=== PATIENT | female | born 1960 | race Caucasian/White ===

== ENCOUNTER 2017-12-01 08:15 | Day surgery (SDC) | payer MEDICARE, MEDICAID ==
[2017-12-01] MEDS ORDERED: LIDOcaine 2% 5ml jelly ONE (09:35)
[2017-12-01] MEDS ORDERED: CYCL-394 (10:16)
[2017-12-01] MEDS ORDERED: ATOR80TA PO (10:16)
[2017-12-01] MEDS ORDERED: SYN0.088T PO (10:17)
[2017-12-01] MEDS ORDERED: METF500T PO (10:18)
[2017-12-01] MEDS ORDERED: GABA600T2 PO (10:19)
[2017-12-01] MEDS ORDERED: NAPR-56 PO (10:20)
[2017-12-01] MEDS ORDERED: PARO40TA4 PO (10:20)
[2017-12-01] MEDS ORDERED: OMEG1CAP PO (10:21)
[2017-12-01] MEDS ORDERED: MULT-38 PO (10:21)
[2017-12-01] MEDS ORDERED: ASCO500C15 PO (10:22)
[2017-12-01] MEDS ORDERED: CHOL10002 PO (10:22)
[2017-12-01] MEDS ORDERED: CYAN-19 PO (10:22)
== END 2017-12-01 11:15 | disposition home or self-care (01) ==
LOC: WOUND CARE 08:15
PROVIDERS: ATTEND Surgery
DX: L98.491 Non-pressure chronic ulcer of skin of other sites limited to breakdown of skin (principal)
CPT/HCPCS: 36416; 82948; 97597; A6021; A6206; A6212

== ENCOUNTER 2020-07-11 11:20 | Emergency (ER) | payer BC, MEDICAID ==
[~2020-07-11 11:20] MED LIST: ASCO500C15 PO; ATOR80TA PO; CHOL10002 PO; CYAN-51 PO; CYCL-394; GABA600T13 PO; METF500T PO; MULT-38 PO; NAPR-56 PO; OMEG1CAP PO; PARO40TA4 PO; SYN0.088T PO
[2020-07-11 11:37] VITALS: BP 102/66
[2020-07-11] MEDS ORDERED: LIDOcaine 5% patch TP ONE (12:05)
[2020-07-11] MEDS ORDERED: HYDR-4353 PO (12:34)
== END 2020-07-11 13:03 | disposition home or self-care (01) ==
LOC: ER 11:26
DX: M54.5 Low back pain (principal); Z88.0 Allergy status to penicillin; Z88.8 Allergy status to other drugs, medicaments and biological substances; Z79.899 Other long term (current) drug therapy
CPT/HCPCS: 99284

== ENCOUNTER 2022-02-19 12:29 | Emergency (ER) | payer BC, MEDICAID ==
[~2022-02-19] VITALS: Ht 162.6 cm; Wt 201.8 kg
[~2022-02-19 12:29] MED LIST changes: -ASCO500C15 PO; +ASCO500C18 PO; -OMEG1CAP PO; +OMEG1CAP61 PO
[2022-02-19] MEDS ORDERED: TETanus/Pertussis (Acell)/Diphther VAC/PF (Tdap-Adult) 0.5ml syringe IMVAC ONE (14:20)
[2022-02-19] MEDS ORDERED: HYDROcodone/acetaminophen 10/325mg tab PO ONE (14:20)
[2022-02-19] MEDS ORDERED: ketorolac trometh. 30mg/ml inj. IM ONE (14:20)
[2022-02-19] MEDS ORDERED: ketorolac tromethamine 15mg/ml inj. IM ONE (14:25)
[2022-02-19 16:57] VITALS: BP 137/70
== END 2022-02-19 17:00 | disposition home or self-care (01) ==
LOC: ER 12:30
DX: S80.01XA Contusion of right knee, initial encounter (principal); S50.311A Abrasion of right elbow, initial encounter; G47.30 Sleep apnea, unspecified; E11.9 Type 2 diabetes mellitus without complications; E03.9 Hypothyroidism, unspecified; Z88.0 Allergy status to penicillin; Z88.8 Allergy status to other drugs, medicaments and biological substances; Z79.899 Other long term (current) drug therapy; E66.01 Morbid (severe) obesity due to excess calories; Z68.45 Body mass index [BMI] 70 or greater, adult; W01.0XXA Fall on same level from slipping, tripping and stumbling without subsequent striking against object, initial encounter; Y93.89 Activity, other specified; Y92.89 Other specified places as the place of occurrence of the external cause; Y99.8 Other external cause status
CPT/HCPCS: 73080; 73560; 90471; 90715; 96372; 99284; J1885

== ENCOUNTER 2022-10-03 14:22 | Inpatient (IN) | payer BC, MEDICAID ==
[~2022-10-03] VITALS: Ht 162.6 cm; Wt 195.5 kg
[~2022-10-03 14:22] MED LIST changes: -CYCL-394; +CYCL-394 PO
[2022-10-03 15:46] LABS: BASOPHILS # (AUTO) 0.1 X10'3 (0-0.2); BASOPHILS % (AUTO) 0.5 % (0-1); EOSINOPHILS # (AUTO) 0.3 X10'3 (0-0.9); EOSINOPHILS % (AUTO) 2.5 % (0-6); HEMATOCRIT 37.8 % (35.0-45.0); HEMOGLOBIN 12.5 g/dl (12.0-16.0); LYMPHOCYTES # (AUTO) 1.9 X10'3 (1.1-4.8); LYMPHOCYTES % (AUTO) 14.6 % (21-51); MEAN CORPUSCULAR HEMOGLOBIN 29.8 PG (27.0-31.0); MEAN CORPUSCULAR VOLUME 90.2 FL (78-98); MEAN PLATELET VOLUME 7.6 FL (7.4-10.4); MONOCYTES # (AUTO) 0.9 X10'3 (0-0.9); MONOCYTES % (AUTO) 7.1 % (2-12); NEUTROPHILS # (AUTO) 9.8 X10'3 (1.8-7.7); NEUTROPHILS % (AUTO) 75.3 % (42-75); PLATELET COUNT 340 X10'3 (140-440); RED CELL DISTRIBUTION WIDTH 14.1 % (11.5-14.5); WHITE BLOOD COUNT 13.1 X10'3 (4.5-11.0)
[2022-10-03 15:54] LABS: ALANINE AMINOTRANSFERASE 24 U/L (12-78); ALBUMIN 2.8 G/DL (3.4-5.0); ALBUMIN/GLOBULIN RATIO 0.6 (1.1-1.5); ALKALINE PHOSPHATASE 101 IU/L (46-116); ANION GAP 7 (8-16); ASPARTATE AMINO TRANSFERASE 22 U/L (10-37); BILIRUBIN,TOTAL 0.4 MG/DL (0.1-1.0); BLOOD UREA NITROGEN 20 MG/DL (7-18); BUN/CREATININE RATIO 17.7 (6.6-38.0); CALCIUM 8.6 MG/DL (8.5-10.1); CHLORIDE 102 MMOL/L (99-107); CREATININE 1.13 MG/DL (0.40-0.90); GLUCOSE 171 MG/DL (70-104); MAGNESIUM 1.8 MG/DL (1.5-2.4); POTASSIUM 4.1 MMOL/L (3.5-5.1); SODIUM 135 MMOL/L (135-145); TOTAL CARBON DIOXIDE 25.6 MMOL/L (24-32); TOTAL PROTEIN 7.3 G/DL (6.4-8.2); eGFR 49 ML/MIN
[2022-10-03] MEDS ORDERED: acetaminophen 325mg tablet PO PRN ×2 (17:30)
[2022-10-03] MEDS ORDERED: magnesium 4gm in 100ml NS 100 ML IV PRN (17:30)
[2022-10-03] MEDS ORDERED: potassium Cl 40MEQ/1/2NS 520ml 520 ML IV PRN (17:30)
[2022-10-03] MEDS ORDERED: potassium Cl 20 mEq SR tablet PO PRN ×2 (17:30)
[2022-10-03] MEDS ORDERED: magnesium Cl slow-release 64mg tablet PO PRN (17:30)
[2022-10-03] MEDS: furosemide 20 MG/2 ML vial IV SCH ×2 (17:50→20:38)
[2022-10-03 18:06] LABS: ABG BASE EXCESS 2.5 mmol/L (-2.0-2.0); ABG HCO3 26.8 mmol/L (22.0-26.0); ABG PCO2 (T) 40.2 mmHg (32.0-45.0); ABG PO2 (T) 91.4 mmHg (75.0-100.0); ALLEN'S TEST POSITIVE; FCOHb 0.3 % (0.0-3.9); FMetHb 0.3 % (0.0-1.5); FO2Hb 96.4 % (94-97); TOTAL HEMOGLOBIN 13.9 G/dl (12.0-16.0)
[2022-10-03] MEDS: levoFLOXACIN-Levaquin 500mg/D5 100 ML IV SCH (18:21)
--- NOTE | 2022-10-03 19:09 | NUR ---
transfered pt to hospital bed for optimal positioning and comfort. fresh linens, pure wick placed on pt.
[2022-10-03] MEDS: heparin, porcine 5000 units/ml vial SQ SCH (20:38)
[2022-10-03] MEDS: ondansetron/PF 4mg/2ml inj IV PRN (22:22)
--- NOTE | 2022-10-04 07:10 | NUR ---
Report given for patient at this time, all questions and concerns addressed.
[2022-10-04 07:30] VITALS: BP 150/82
[2022-10-04 09:39] LABS: BASOPHILS # (AUTO) 0.1 X10'3 (0-0.2); BASOPHILS % (AUTO) 0.8 % (0-1); EOSINOPHILS # (AUTO) 0.1 X10'3 (0-0.9); EOSINOPHILS % (AUTO) 0.9 % (0-6); LYMPHOCYTES % (AUTO) 10.3 % (21-51); MEAN CORPUSCULAR HEMOGLOBIN 29.7 PG (27.0-31.0); MEAN CORPUSCULAR HGB CONC 33.3 g/dL (33.0-36.5); MEAN CORPUSCULAR VOLUME 89.4 FL (78-98); MEAN PLATELET VOLUME 7.9 FL (7.4-10.4); NEUTROPHILS # (AUTO) 7.4 X10'3 (1.8-7.7); PLATELET COUNT 326 X10'3 (140-440); RED BLOOD COUNT 4.37 X10'6 (4.20-5.60); RED CELL DISTRIBUTION WIDTH 14.6 % (11.5-14.5); WHITE BLOOD COUNT 9.6 X10'3 (4.5-11.0)
[2022-10-04] MEDS: heparin, porcine 5000 units/ml vial SQ SCH ×2 (09:56→20:11)
[2022-10-04] MEDS: furosemide 20 MG/2 ML vial IV SCH ×2 (09:56→20:10)
[2022-10-04] MEDS: levoFLOXACIN-Levaquin 500mg/D5 100 ML IV SCH (09:57)
[2022-10-04] MEDS ORDERED: LEVO75TA7 PO (10:18)
[2022-10-04] MEDS ORDERED: TRAM50TA2 PO (10:20)
[2022-10-04 10:26] LABS: ALANINE AMINOTRANSFERASE 28 U/L (12-78); ALBUMIN/GLOBULIN RATIO 0.6 (1.1-1.5); ALKALINE PHOSPHATASE 104 IU/L (46-116); ANION GAP 9 (8-16); ASPARTATE AMINO TRANSFERASE 31 U/L (10-37); BILIRUBIN,TOTAL 0.6 MG/DL (0.1-1.0); BLOOD UREA NITROGEN 18 MG/DL (7-18); BUN/CREATININE RATIO 16.7 (6.6-38.0); CHLORIDE 101 MMOL/L (99-107); CREATININE 1.08 MG/DL (0.40-0.90); GLUCOSE 125 MG/DL (70-104); POTASSIUM 3.8 MMOL/L (3.5-5.1); SODIUM 137 MMOL/L (135-145); TOTAL CARBON DIOXIDE 27.1 MMOL/L (24-32); TOTAL PROTEIN 7.8 G/DL (6.4-8.2); eGFR 51 ML/MIN
[2022-10-04] MEDS: ondansetron/PF 4mg/2ml inj IV PRN (10:33)
[2022-10-04] MEDS ORDERED: PIOG30TA71 PO (10:52)
[2022-10-04] MEDS ORDERED: HYDR50TA65 PO (10:52)
[2022-10-04] MEDS ORDERED: MELO-102 PO (10:52)
[2022-10-04] MEDS ORDERED: ALBU17AE26 PO (10:52)
[2022-10-04] MEDS ORDERED: BECL10.6 PO (10:52)
[2022-10-04] MEDS ORDERED: FURO20TA4 PO (10:52)
[2022-10-04] MEDS ORDERED: METF-900 PO (10:52)
[2022-10-04] MEDS ORDERED: SUMA100T16 PO (10:53)
[2022-10-04 11:52] LABS: HEMOGLOBIN A1C 6.3 % (4.5-6.2)
[2022-10-04] MEDS ORDERED: SUMAtriptan 25 MG tablet PO PRN (11:55)
[2022-10-04 12:03] VITALS: BP 126/62
--- NOTE | 2022-10-04 12:26 | NUR ---
Paged Dr thomas PAGER ID: [phone] MESSAGE: [phone]. Pili. Pt nauseous again, zofran given at 1003; A1C 6.3, ac/hs protocol? Javad, Dary [phone]
[2022-10-04] MEDS: albuterol 2.5 MG/3 ML nebule NEB PRN ×2 (12:33→17:03)
[2022-10-04] MEDS ORDERED: ondansetron/PF 4mg/2ml inj IV ONE (13:51)
--- NOTE | 2022-10-04 13:56 | NUR ---
Paged PAGER ID: [phone] MESSAGE: [phone]. Pili. Critical Trop 145. Dary [phone]
[2022-10-04] MEDS: nystatin 15 GM powder TP SCH ×2 (14:06→20:11)
[2022-10-04] MEDS ORDERED: regadenoson 0.4mg/5ml syringe IV PRN (15:00)
[2022-10-04] MEDS ORDERED: metoprolol tartrate 1mg/ml inj IV PRN (15:00)
[2022-10-04] MEDS ORDERED: aminophylline 250mg/10ml inj. IV PRN (15:00)
[2022-10-04] MEDS ORDERED: nitroGLYCERIN 0.4mg SUBLingual tab SL PRN (15:00)
[2022-10-04 16:00] VITALS: BP 129/79
--- NOTE | 2022-10-04 16:18 | NUR ---
Paged Dr José PAGER ID: [phone] MESSAGE: [id number]. Pili. Pt requesting paxil to be started today. She's already missed yesterdays dose too. Dary Farnsworth [phone]
[2022-10-04] MEDS: PARoxetine 20mg tablet PO SCH (16:57)
[2022-10-04 18:00] VITALS: BP 122/69
--- NOTE | 2022-10-04 18:30 | NUR ---
Patient in room U 3013. I have received report from Dary/ZARINA Medina and had the opportunity to ask questions and assume patient care. Patient sitting on side of bed in no distress, I will continue to monitor.
--- NOTE | 2022-10-04 18:54 | NUR ---
Orientee documentation: I have reviewed and agree with all interventions, assessments performed and documented by ZARINA Medina.
[2022-10-04] MEDS ORDERED: ondansetron/PF 4mg/2ml inj IV PRN (20:00)
[2022-10-04] MEDS: budesonide 0.5mg/2ml UD nebule IH SCH ×2 (20:09→21:00)
[2022-10-04] MEDS: gabapentin 300mg capsule PO SCH (20:10)
[2022-10-04] MEDS ORDERED: atorvastatin 20mg tablet PO SCH (21:00)
[2022-10-05 02:00] VITALS: BP 127/77
--- NOTE | 2022-10-05 03:02 | NUR ---
Patient reported to PCT that she has a sore throat, I went to assess her but she was sound asleep.
--- NOTE | 2022-10-05 06:03 | NUR ---
Problems reprioritized. Patient report given, questions answered & plan of care reviewed with ZARINA Foote.
[2022-10-05 06:30] VITALS: BP 118/69
[2022-10-05 07:18] LABS: BASOPHILS # (AUTO) 0.1 X10'3 (0-0.2); BASOPHILS % (AUTO) 0.7 % (0-1); EOSINOPHILS % (AUTO) 0.2 % (0-6); HEMATOCRIT 39.5 % (35.0-45.0); HEMOGLOBIN 12.7 g/dl (12.0-16.0); LYMPHOCYTES # (AUTO) 1.1 X10'3 (1.1-4.8); LYMPHOCYTES % (AUTO) 14.8 % (21-51); MEAN CORPUSCULAR HEMOGLOBIN 29.4 PG (27.0-31.0); MEAN CORPUSCULAR HGB CONC 32.1 g/dL (33.0-36.5); MEAN CORPUSCULAR VOLUME 91.5 FL (78-98); MEAN PLATELET VOLUME 7.6 FL (7.4-10.4); MONOCYTES # (AUTO) 1.5 X10'3 (0-0.9); MONOCYTES % (AUTO) 19.2 % (2-12); NEUTROPHILS % (AUTO) 65.1 % (42-75); PLATELET COUNT 299 X10'3 (140-440); RED BLOOD COUNT 4.31 X10'6 (4.20-5.60); RED CELL DISTRIBUTION WIDTH 14.4 % (11.5-14.5); WHITE BLOOD COUNT 7.6 X10'3 (4.5-11.0)
[2022-10-05] MEDS ORDERED: PARoxetine 20mg tablet PO SCH (08:00)
[2022-10-05] MEDS ORDERED: levoTHYROXINE 75mcg tablet PO SCH (08:00)
[2022-10-05 08:34] LABS: ALANINE AMINOTRANSFERASE 27 U/L (12-78); ALBUMIN 2.9 G/DL (3.4-5.0); ALBUMIN/GLOBULIN RATIO 0.6 (1.1-1.5); ALKALINE PHOSPHATASE 97 IU/L (46-116); ANION GAP 6 (8-16); ASPARTATE AMINO TRANSFERASE 52 U/L (10-37); BILIRUBIN,TOTAL 0.4 MG/DL (0.1-1.0); BLOOD UREA NITROGEN 18 MG/DL (7-18); BUN/CREATININE RATIO 16.2 (6.6-38.0); CALCIUM 8.4 MG/DL (8.5-10.1); CHLORIDE 100 MMOL/L (99-107); CREATININE 1.11 MG/DL (0.40-0.90); GLUCOSE 125 MG/DL (70-104); POTASSIUM 3.9 MMOL/L (3.5-5.1); SODIUM 138 MMOL/L (135-145); TOTAL CARBON DIOXIDE 31.7 MMOL/L (24-32); TOTAL PROTEIN 7.7 G/DL (6.4-8.2); eGFR 50 ML/MIN
--- NOTE | 2022-10-05 08:59 | NUR ---
Paged Dr José PAGER ID: [phone] MESSAGE: [phone]. Pili. Critical trop 111. Nuc med is going to take her soon for charly. Dary Farnsworth [phone]
[2022-10-05] MEDS: heparin, porcine 5000 units/ml vial SQ SCH (09:05)
[2022-10-05] MEDS: nystatin 15 GM powder TP SCH ×2 (09:05→13:54)
[2022-10-05] MEDS: PARoxetine 20mg tablet PO SCH (09:06)
[2022-10-05] MEDS: gabapentin 300mg capsule PO SCH (09:06)
[2022-10-05] MEDS: furosemide 20 MG/2 ML vial IV SCH (09:37)
[2022-10-05] MEDS ORDERED: BENZ-38 PO (09:47)
[2022-10-05] MEDS ORDERED: LEVO-65 PO (09:47)
[2022-10-05] MEDS ORDERED: ALBU2.5V7 NEB (09:47)
[2022-10-05] MEDS ORDERED: [UNRECOGNIZED DRUG - CODE] PO (09:47)
[2022-10-05] MEDS ORDERED: NYSPWD TP (09:51)
--- NOTE | 2022-10-05 10:09 | NUR ---
O2 Sat at rest on room air:_88__% If below 89%: Recovery O2 Sat at rest on _2LPM:___%:___% via___NC (mask/nasal cannula, etc..) No further documentation is necessary. Addendum: 10/05/22 at 1056 by Dary Langford RN Recovery O2 Sat at rest on _LPM:_93__%:___% via___NC (mask/nasal cannula, etc..) No further documentation is necessary.
[2022-10-05] MEDS: budesonide 0.5mg/2ml UD nebule IH SCH (10:17)
[2022-10-05 11:00] VITALS: BP 123/68
[2022-10-05] MEDS ORDERED: levoFLOXACIN 250mg tablet PO SCH (11:00)
[2022-10-05 15:00] VITALS: BP 120/69
--- NOTE | 2022-10-05 17:04 | NUR ---
PT stable for d/c per MD orders, delayed d/t o2 delivery and ride. All d/c ppwk was rev;d with patient. Friend, Maikel, in room as well. All questions, comments, and concerns answered at this time. PIV was removed and coban applied. Pt tolerated well. All personal belongings were sent with patient as well as delivered O2. All personal belongings were sent with patient. Pt got herself into her electric w/c and with her friend, was able to leave the building as they needed to catch the bus. Gave her blanket and gown to cover herself as she only had a nightgown to go home in. Addendum: 10/05/22 at 1718 by Dary Langford RN new rx were electronically sent to [facility] on [address]. 3 meds were not electronically sent so I called those in for her. Spoke with pharmacist Claudio.
== END 2022-10-05 17:00 | disposition home or self-care (01) | DRG 189 ==
LOC: ER 14:23 → ED HOLD 17:33 → EDBEDREQ 10-04 05:29 → PCU 3S 10-04 07:33
PROVIDERS: ADMIT Internal Medicine; ATTEND Internal Medicine
PROC: 5A09357 Assistance with Respiratory Ventilation, Less than 24 Consecutive Hours, Continuous Positive Airway Pressure (ICD-10-PCS; principal; 2022-10-04)
PROC: 5A09357 Assistance with Respiratory Ventilation, Less than 24 Consecutive Hours, Continuous Positive Airway Pressure (ICD-10-PCS; 2022-10-05)
DX: J96.20 Acute and chronic respiratory failure, unspecified whether with hypoxia or hypercapnia (principal); I21.A1 Myocardial infarction type 2; J45.901 Unspecified asthma with (acute) exacerbation; I50.32 Chronic diastolic (congestive) heart failure; Z68.45 Body mass index [BMI] 70 or greater, adult; Z20.822 Contact with and (suspected) exposure to COVID-19; F32.A Depression, unspecified; D72.829 Elevated white blood cell count, unspecified; I35.1 Nonrheumatic aortic (valve) insufficiency; B36.9 Superficial mycosis, unspecified; E03.9 Hypothyroidism, unspecified; E11.9 Type 2 diabetes mellitus without complications; E66.01 Morbid (severe) obesity due to excess calories; G47.33 Obstructive sleep apnea (adult) (pediatric); R79.89 Other specified abnormal findings of blood chemistry; Z88.0 Allergy status to penicillin; Z88.8 Allergy status to other drugs, medicaments and biological substances
CPT/HCPCS: 36415; 36600; 71045; 80053; 82803; 82948; 83036; 83605; 83735; 83880; 84145; 84443; 84484; 85018; 85025; 87502; 87503; 87635; 93005; 93308; 94640; 94660; 94760; 97110; 97161; 97530; 99285; A6223; A6449; C9803; G0378; J1644; J1940; J1956; J2405

== ENCOUNTER 2022-12-15 05:05 | Emergency (ER) | payer BC, MEDICAID ==
[~2022-12-15] VITALS: Ht 162.6 cm; Wt 200.0 kg
[~2022-12-15 05:05] MED LIST changes: +ALBU17AE26 PO; +ALBU2.5V7 NEB; -ASCO500C18 PO; +BECL10.6 PO; -CHOL10002 PO; -CYAN-51 PO; +FURO20TA4 PO; +HYDR50TA65 PO; +LEVO75TA7 PO; +METF-900 PO; -METF500T PO; -MULT-38 PO; -NAPR-56 PO; +NYSPWD TP; -OMEG1CAP61 PO; +PIOG30TA71 PO; +SUMA100T16 PO; -SYN0.088T PO; +TRAM50TA2 PO; +[UNRECOGNIZED DRUG - CODE] PO
[2022-12-15] MEDS ORDERED: methylPREDNISolone sod succ 125mg/2ml vial IV ONE (05:10)
[2022-12-15] MEDS ORDERED: albuterol 2.5 MG/3 ML nebule CONTNEB PRN ×2 (05:10→06:45)
[2022-12-15] MEDS ORDERED: CefTRIAXone/D5W-Rocephin 1gm 50 ML IV ONE (05:15)
[2022-12-15 05:34] LABS: BASOPHILS # (AUTO) 0.1 X10'3 (0-0.2); BASOPHILS % (AUTO) 0.8 % (0-1); EOSINOPHILS # (AUTO) 0.4 X10'3 (0-0.9); EOSINOPHILS % (AUTO) 4.1 % (0-6); HEMATOCRIT 36.1 % (35.0-45.0); HEMOGLOBIN 11.5 g/dl (12.0-16.0); LYMPHOCYTES % (AUTO) 30.5 % (21-51); MEAN CORPUSCULAR HEMOGLOBIN 28.9 PG (27.0-31.0); MEAN CORPUSCULAR HGB CONC 31.9 g/dL (33.0-36.5); MEAN CORPUSCULAR VOLUME 90.6 FL (78-98); MEAN PLATELET VOLUME 7.2 FL (7.4-10.4); MONOCYTES # (AUTO) 1.1 X10'3 (0-0.9); MONOCYTES % (AUTO) 11.4 % (2-12); NEUTROPHILS # (AUTO) 5.2 X10'3 (1.8-7.7); NEUTROPHILS % (AUTO) 53.2 % (42-75); PLATELET COUNT 411 X10'3 (140-440); RED BLOOD COUNT 3.99 X10'6 (4.20-5.60); RED CELL DISTRIBUTION WIDTH 15.3 % (11.5-14.5); WHITE BLOOD COUNT 9.8 X10'3 (4.5-11.0)
[2022-12-15] MEDS ORDERED: AZIT-83 PO (05:44)
[2022-12-15] MEDS ORDERED: PRED20TA PO (05:44)
[2022-12-15 06:07] LABS: ALBUMIN 2.8 G/DL (3.4-5.0); ALBUMIN/GLOBULIN RATIO 0.6 (1.1-1.5); ANION GAP 8 (8-16); ASPARTATE AMINO TRANSFERASE 36 U/L (10-37); BILIRUBIN,TOTAL 0.3 MG/DL (0.1-1.0); BLOOD UREA NITROGEN 13 MG/DL (7-18); BUN/CREATININE RATIO 12.6 (6.6-38.0); CALCIUM 8.3 MG/DL (8.5-10.1); CHLORIDE 102 MMOL/L (99-107); CREATININE 1.03 MG/DL (0.40-0.90); GLUCOSE 172 MG/DL (70-104); POTASSIUM 4.1 MMOL/L (3.5-5.1); SODIUM 139 MMOL/L (135-145); TOTAL CARBON DIOXIDE 28.8 MMOL/L (24-32); TOTAL PROTEIN 7.4 G/DL (6.4-8.2); eGFR 54 ML/MIN
[2022-12-15 06:08] LABS: ALANINE AMINOTRANSFERASE 23 U/L (12-78); ALKALINE PHOSPHATASE 143 IU/L (46-116)
[2022-12-15 09:46] VITALS: BP 124/66
== END 2022-12-15 10:12 | disposition home or self-care (01) ==
LOC: ER 05:06
DX: J45.901 Unspecified asthma with (acute) exacerbation (principal); E11.9 Type 2 diabetes mellitus without complications; I10 Essential (primary) hypertension; Z88.0 Allergy status to penicillin; Z88.1 Allergy status to other antibiotic agents
CPT/HCPCS: 36415; 71045; 80053; 83605; 83880; 84145; 84484; 85025; 87040; 87077; 93005; 94640; 94644; 94645; 96365; 96375; 99285; J0696; J2930; 94760; A4615; A7015

== ENCOUNTER 2023-03-01 18:16 | Emergency (ER) | payer BC, MEDICAID ==
[~2023-03-01] VITALS: Ht 162.6 cm; Wt 154.6 kg
[2023-03-01 18:27] VITALS: BP 109/59
[2023-03-01] MEDS ORDERED: CYCL-1 PO (20:28)
[2023-03-01] MEDS ORDERED: cyclobenzaprine 10mg tablet PO ONE (20:30)
== END 2023-03-01 20:46 | disposition home or self-care (01) ==
LOC: ER 18:17
DX: M54.41 Lumbago with sciatica, right side (principal); E11.9 Type 2 diabetes mellitus without complications; J45.909 Unspecified asthma, uncomplicated; E03.9 Hypothyroidism, unspecified; Z88.0 Allergy status to penicillin; Z88.8 Allergy status to other drugs, medicaments and biological substances
CPT/HCPCS: 99283

== ENCOUNTER 2023-04-25 09:42 | Emergency (ER) | payer BC, MEDICAID ==
[~2023-04-25] VITALS: Ht 162.6 cm; Wt 181.0 kg
[~2023-04-25 09:42] MED LIST changes: +CYCL-1 PO
[2023-04-25 11:28] LABS: BASOPHILS % (AUTO) 0.3 % (0-1); EOSINOPHILS # (AUTO) 0.5 X10'3 (0-0.9); EOSINOPHILS % (AUTO) 4.7 % (0-6); HEMOGLOBIN 12.7 g/dl (12.0-16.0); MEAN CORPUSCULAR HEMOGLOBIN 27.6 PG (27.0-31.0); MEAN CORPUSCULAR HGB CONC 32.1 g/dL (33.0-36.5); RED BLOOD COUNT 4.59 X10'6 (4.20-5.60)
[2023-04-25 11:30] LABS: HEMATOCRIT 39.4 % (35.0-45.0); LYMPHOCYTES # (AUTO) 4.2 X10'3 (1.1-4.8); LYMPHOCYTES % (AUTO) 36.7 % (21-51); MEAN CORPUSCULAR VOLUME 85.8 FL (78-98); MEAN PLATELET VOLUME 7.7 FL (7.4-10.4); MONOCYTES # (AUTO) 0.9 X10'3 (0-0.9); MONOCYTES % (AUTO) 7.6 % (2-12); NEUTROPHILS # (AUTO) 5.8 X10'3 (1.8-7.7); NEUTROPHILS % (AUTO) 50.7 % (42-75); PLATELET COUNT 504 X10'3 (140-440); RED CELL DISTRIBUTION WIDTH 16.7 % (11.5-14.5); WHITE BLOOD COUNT 11.4 X10'3 (4.5-11.0)
[2023-04-25 11:36] LABS: ALANINE AMINOTRANSFERASE 29 U/L (12-78); ALBUMIN 2.9 G/DL (3.4-5.0); ALBUMIN/GLOBULIN RATIO 0.6 (1.1-1.5); ALKALINE PHOSPHATASE 167 IU/L (46-116); ANION GAP 11 (8-16); ASPARTATE AMINO TRANSFERASE 27 U/L (10-37); BILIRUBIN,TOTAL 0.4 MG/DL (0.1-1.0); BLOOD UREA NITROGEN 16 MG/DL (7-18); BUN/CREATININE RATIO 13.8 (10.0-20.0); CALCIUM 9.3 MG/DL (8.5-10.1); CHLORIDE 102 MMOL/L (99-107); CREATININE 1.16 MG/DL (0.40-0.90); GLUCOSE 151 MG/DL (70-104); POTASSIUM 3.9 MMOL/L (3.5-5.1); SODIUM 139 MMOL/L (135-145); TOTAL CARBON DIOXIDE 26.2 MMOL/L (24-32); TOTAL PROTEIN 7.6 G/DL (6.4-8.2); eGFR 47 ML/MIN
[2023-04-25 14:05] LABS: ANISOCYTOSIS 1+; PLATELET ESTIMATE INCREASED; TOTAL CELLS COUNTED 100
[2023-04-25 15:29] LABS: CLARITY,URINE CLOUDY (Clear); COLOR,URINE YELLOW (Yellow); GLUCOSE, URINE NEGATIVE (Neg); KETONES,URINE NEGATIVE (Neg); LEUKOCYTE ESTERASE ,URINE SMALL (Neg); NITRITES, URINE POSITIVE (Neg); OCCULT BLOOD,URINE SMALL (Neg); PH,URINE 5.5 (4.8-8.0); PROTEIN,URINE NEGATIVE (Neg); UROBILINOGEN,URINE 0.2 E.U/dL (0.2-1.0)
[2023-04-25 15:40] VITALS: BP 173/106
[2023-04-25 15:43] LABS: UA COLLECTION TYPE CLN CATCH MIDSTREAM
[2023-04-25 15:45] LABS: BACTERIA,URINE 3+ /HPF (Neg); MUCUS STRANDS FEW /LPF (Neg); SQUAMOUS EPITHELIAL CELL,UR MODERATE /LPF (FEW); WBC CLUMPS,URINE FEW /HPF (NEGATIVE); WBC,URINE TNTC /HPF (0-4)
[2023-04-25] MEDS ORDERED: traMADol 50MG tablet PO ONE (16:00)
--- NOTE | 2023-04-25 16:43 | NUR ---
Spoke to [facility], they are not able to transport Pt at this time. Also called [employer], also not able to transport.
--- NOTE | 2023-04-25 17:00 | NUR ---
Break RN: patient sitting at the edge of the bed,no needs at this time.
--- NOTE | 2023-04-25 17:26 | NUR ---
Pt will be transfered via [facility] [employer].
== END 2023-04-25 17:51 | disposition home or self-care (01) ==
LOC: ER 09:42
DX: S30.92XD Unspecified superficial injury of abdominal wall, subsequent encounter (principal); E11.9 Type 2 diabetes mellitus without complications; J45.909 Unspecified asthma, uncomplicated; E03.9 Hypothyroidism, unspecified; Z88.0 Allergy status to penicillin; Z88.8 Allergy status to other drugs, medicaments and biological substances; Z79.899 Other long term (current) drug therapy; X58.XXXD Exposure to other specified factors, subsequent encounter
CPT/HCPCS: 36415; 80053; 81001; 84145; 85007; 85025; 87088; 99284

== ENCOUNTER 2023-08-24 10:50 | Emergency (ER) | payer BC, MEDICAID ==
[~2023-08-24] VITALS: Ht 162.6 cm; Wt 184.0 kg
[2023-08-24 12:09] LABS: BASOPHILS # (AUTO) 0.1 X10'3 (0-0.2); BASOPHILS % (AUTO) 1.1 % (0-1); EOSINOPHILS # (AUTO) 0.3 X10'3 (0-0.9); EOSINOPHILS % (AUTO) 2.9 % (0-6); HEMATOCRIT 38.5 % (35.0-45.0); HEMOGLOBIN 12.5 g/dl (12.0-16.0); LYMPHOCYTES # (AUTO) 2.7 X10'3 (1.1-4.8); LYMPHOCYTES % (AUTO) 26.7 % (21-51); MEAN CORPUSCULAR HEMOGLOBIN 28.7 PG (27.0-31.0); MEAN CORPUSCULAR HGB CONC 32.5 g/dL (33.0-36.5); MEAN CORPUSCULAR VOLUME 88.3 FL (78-98); MEAN PLATELET VOLUME 7.4 FL (7.4-10.4); MONOCYTES # (AUTO) 0.9 X10'3 (0-0.9); MONOCYTES % (AUTO) 9.4 % (2-12); NEUTROPHILS % (AUTO) 59.9 % (42-75); PLATELET COUNT 478 X10'3 (140-440); RED BLOOD COUNT 4.36 X10'6 (4.20-5.60); RED CELL DISTRIBUTION WIDTH 15.2 % (11.5-14.5)
[2023-08-24 12:30] LABS: ALANINE AMINOTRANSFERASE 35 U/L (12-78); ALBUMIN 2.6 G/DL (3.4-5.0); ALBUMIN/GLOBULIN RATIO 0.6 (1.1-1.5); ALKALINE PHOSPHATASE 163 IU/L (46-116); ANION GAP 11 (8-16); ASPARTATE AMINO TRANSFERASE 49 U/L (10-37); BILIRUBIN,TOTAL 0.4 MG/DL (0.1-1.0); BLOOD UREA NITROGEN 14 MG/DL (7-18); BUN/CREATININE RATIO 11.9 (10.0-20.0); CALCIUM 8.5 MG/DL (8.5-10.1); CHLORIDE 101 MMOL/L (99-107); CREATININE 1.18 MG/DL (0.40-0.90); GLUCOSE 142 MG/DL (70-104); POTASSIUM 3.9 MMOL/L (3.5-5.1); SODIUM 137 MMOL/L (135-145); TOTAL CARBON DIOXIDE 24.9 MMOL/L (24-32); TOTAL PROTEIN 7.1 G/DL (6.4-8.2); eCRCL 42 ML/MIN; eGFR 46 ML/MIN
[2023-08-24 12:31] LABS: ANISOCYTOSIS 1+; PLATELET ESTIMATE INCREASED; TOTAL CELLS COUNTED 100
[2023-08-24 12:38] LABS: PRO BRAIN NATRIURETIC PEPTIDE 568 PG/ML (0-125)
--- NOTE | 2023-08-24 12:52 | NUR ---
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
--- NOTE | 2023-08-24 13:34 | NUR ---
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
--- NOTE | 2023-08-24 15:30 | NUR ---
DISCUSSED PT'S SITUATION WITH WOC NURSE. WOC NURSE STATING THAT IF SHE IS ADMITTED, PLACE CONSULT AND THEY WILL COME SEE HER TOMORROW. IF SHE IS DISCHARGED, THEY WILL RESUME DRESSING CHANGES TO HER PANUS AREA AT SCHEDULED APPOINTMENT ON TUESDAY.
[2023-08-24 16:11] VITALS: TEMP 98
[2023-08-24] MEDS ORDERED: magnesium 4gm in 100ml NS 100 ML IV ONE (16:15)
[2023-08-24 16:44] LABS: BILIRUBIN,URINE NEGATIVE (Neg); CLARITY,URINE TURBID (Clear); COLOR,URINE YELLOW (Yellow); GLUCOSE, URINE NEGATIVE (Neg); KETONES,URINE NEGATIVE (Neg); LEUKOCYTE ESTERASE ,URINE SMALL (Neg); NITRITES, URINE POSITIVE (Neg); OCCULT BLOOD,URINE TRACE-INTACT (Neg); PH,URINE 5.5 (4.8-8.0); PROTEIN,URINE NEGATIVE (Neg); UROBILINOGEN,URINE 0.2 E.U/dL (0.2-1.0)
[2023-08-24 16:57] LABS: UA COLLECTION TYPE CLN CATCH MIDSTREAM
[2023-08-24 16:58] LABS: BACTERIA,URINE 4+ /HPF (Neg); HYALINE CASTS 0-3 /LPF (NEGATIVE); RBC,URINE 0-2 /HPF (0-2); SQUAMOUS EPITHELIAL CELL,UR MODERATE /LPF (FEW)
--- NOTE | 2023-08-24 16:58 | NUR ---
SPOKE WITH MD RANGEL WHO STATED OKAY TO RUN MAGNESIUM OVER 60 MINUTES TIMESPAN.
[2023-08-24 16:59] LABS: WBC CLUMPS,URINE FEW /HPF (NEGATIVE); WBC,URINE 50-100 /HPF (0-4)
[2023-08-24] MEDS ORDERED: CefTRIAXone 2gm/D5W 50ml BAG 50 ML IV ONE (17:10)
[2023-08-24] MEDS ORDERED: ALBU8HFA INH (18:12)
[2023-08-24] MEDS ORDERED: LEVO-65 PO (18:12)
[2023-08-24] MEDS ORDERED: PRED20TA PO (18:12)
[2023-08-24] MEDS ORDERED: methylPREDNISolone sod succ 125mg/2ml vial IV ONE (18:20)
[2023-08-24 19:32] VITALS: BP 111/58; PULSE 96; RESP 18; O2SAT 93
== END 2023-08-24 19:35 | disposition home or self-care (01) ==
LOC: ER 10:51
DX: N39.0 Urinary tract infection, site not specified (principal); Z20.822 Contact with and (suspected) exposure to COVID-19; E83.42 Hypomagnesemia; R05.9 Cough, unspecified; J45.909 Unspecified asthma, uncomplicated; E03.9 Hypothyroidism, unspecified; Z88.0 Allergy status to penicillin; Z88.8 Allergy status to other drugs, medicaments and biological substances; Z79.899 Other long term (current) drug therapy; Z79.1 Long term (current) use of non-steroidal anti-inflammatories (NSAID); Z79.2 Long term (current) use of antibiotics
CPT/HCPCS: 36415; 70450; 71045; 80053; 81001; 83605; 83735; 83880; 84484; 85007; 85025; 87040; 87077; 87088; 87186; 87502; 87503; 87811; 93005; 96365; 96366; 96368; 96375; 99285; J0696; J2930; J3475

== ENCOUNTER 2023-10-31 16:02 | Emergency (ER) | payer BC, MEDICAID ==
[~2023-10-31] VITALS: Ht 167.6 cm; Wt 169.1 kg
[2023-10-31 18:01] LABS: BASOPHILS # (AUTO) 0.1 X10'3 (0-0.2); BASOPHILS % (AUTO) 1.3 % (0-1); EOSINOPHILS # (AUTO) 0.3 X10'3 (0-0.9); EOSINOPHILS % (AUTO) 2.6 % (0-6); HEMATOCRIT 39.7 % (35.0-45.0); HEMOGLOBIN 12.7 g/dl (12.0-16.0); LYMPHOCYTES # (AUTO) 3.2 X10'3 (1.1-4.8); LYMPHOCYTES % (AUTO) 27.6 % (21-51); MEAN CORPUSCULAR HEMOGLOBIN 28.8 PG (27.0-31.0); MEAN CORPUSCULAR VOLUME 89.8 FL (78-98); MEAN PLATELET VOLUME 7.6 FL (7.4-10.4); MONOCYTES # (AUTO) 0.9 X10'3 (0-0.9); MONOCYTES % (AUTO) 7.8 % (2-12); NEUTROPHILS # (AUTO) 6.9 X10'3 (1.8-7.7); NEUTROPHILS % (AUTO) 60.7 % (42-75); PLATELET COUNT 485 X10'3 (140-440); RED BLOOD COUNT 4.42 X10'6 (4.20-5.60); RED CELL DISTRIBUTION WIDTH 14.7 % (11.5-14.5); WHITE BLOOD COUNT 11.4 X10'3 (4.5-11.0)
[2023-10-31 18:08] LABS: ALANINE AMINOTRANSFERASE 26 U/L (12-78); ALBUMIN 2.5 G/DL (3.4-5.0); ALBUMIN/GLOBULIN RATIO 0.5 (1.1-1.5); ALKALINE PHOSPHATASE 145 IU/L (46-116); ANION GAP 11 (8-16); ASPARTATE AMINO TRANSFERASE 28 U/L (10-37); BILIRUBIN,TOTAL 0.3 MG/DL (0.1-1.0); BLOOD UREA NITROGEN 12 MG/DL (7-18); BUN/CREATININE RATIO 11.7 (10.0-20.0); C-REACTIVE PROTEIN 2.55 MG/DL (0.0-0.5); CALCIUM 7.6 MG/DL (8.5-10.1); CHLORIDE 100 MMOL/L (99-107); CREATININE 1.03 MG/DL (0.40-0.90); GLUCOSE 126 MG/DL (70-104); POTASSIUM 4.3 MMOL/L (3.5-5.1); SODIUM 136 MMOL/L (135-145); TOTAL CARBON DIOXIDE 24.6 MMOL/L (24-32); TOTAL PROTEIN 7.5 G/DL (6.4-8.2); eCRCL 48 ML/MIN; eGFR 54 ML/MIN
[2023-10-31] MEDS ORDERED: Dakins solution (1/4 strength) 473ml solution TP SCH (21:40)
[2023-10-31] MEDS ORDERED: DOXY-356 PO (21:58)
[2023-10-31 22:33] VITALS: BP 110/47; PULSE 89; RESP 16; TEMP 98.2; O2SAT 99
[2023-11-03] MEDS ORDERED: SULF1TAB48 PO (18:25)
== END 2023-10-31 22:36 | disposition home or self-care (01) ==
LOC: ER 16:03
DX: T14.8XXA Other injury of unspecified body region, initial encounter (principal); E66.9 Obesity, unspecified; I10 Essential (primary) hypertension; J45.909 Unspecified asthma, uncomplicated; E11.9 Type 2 diabetes mellitus without complications; E03.9 Hypothyroidism, unspecified; Z88.0 Allergy status to penicillin; Z88.8 Allergy status to other drugs, medicaments and biological substances; Z79.899 Other long term (current) drug therapy; Z79.2 Long term (current) use of antibiotics; Z79.1 Long term (current) use of non-steroidal anti-inflammatories (NSAID)
CPT/HCPCS: 36415; 80053; 85025; 85651; 86140; 87070; 87077; 87186; 99283

== ENCOUNTER 2024-05-22 11:02 | Day surgery (SDC) | payer BC, MEDICAID ==
[2024-05-18 11:11] LABS: BASOPHILS # (AUTO) 0.1 X10'3 (0-0.2); EOSINOPHILS # (AUTO) 0.4 X10'3 (0-0.9); EOSINOPHILS % (AUTO) 3.2 % (0-6); HEMATOCRIT 40.5 % (35.0-45.0); HEMOGLOBIN 13.3 g/dl (12.0-16.0); LYMPHOCYTES # (AUTO) 3.6 X10'3 (1.1-4.8); MEAN CORPUSCULAR HEMOGLOBIN 29.2 PG (27.0-31.0); MEAN CORPUSCULAR HGB CONC 32.7 g/dL (33.0-36.5); MEAN CORPUSCULAR VOLUME 89.1 FL (78-98); MEAN PLATELET VOLUME 7.8 FL (7.4-10.4); MONOCYTES # (AUTO) 0.7 X10'3 (0-0.9); MONOCYTES % (AUTO) 5.9 % (2-12); NEUTROPHILS # (AUTO) 7.6 X10'3 (1.8-7.7); NEUTROPHILS % (AUTO) 60.9 % (42-75); PLATELET COUNT 427 X10'3 (140-440); RED BLOOD COUNT 4.55 X10'6 (4.20-5.60); RED CELL DISTRIBUTION WIDTH 14.3 % (11.5-14.5); WHITE BLOOD COUNT 12.5 X10'3 (4.5-11.0)
[2024-05-18 11:27] LABS: APTT 30 SECONDS (22-32); PROTHROMBIN TIME 10.9 SECONDS (9.0-12.0)
[2024-05-18 11:30] LABS: ALBUMIN 2.9 G/DL (3.4-5.0); ANION GAP 7 (8-16); BLOOD UREA NITROGEN 13 MG/DL (7-18); BUN/CREATININE RATIO 12.3 (10.0-20.0); CALCIUM 9.1 MG/DL (8.5-10.1); CHLORIDE 103 MMOL/L (99-107); CHOL/HDL RATIO 3.9 (0.00-4.99); CHOLESTEROL 184 MG/DL (0-200); CREATININE 1.06 MG/DL (0.40-0.90); GLUCOSE 180 MG/DL (70-104); HDL CHOLESTEROL 47 MG/DL (35-60); LDL CHOLESTEROL 101 MG/DL (50-100); POTASSIUM 4.3 MMOL/L (3.5-5.1); SODIUM 139 MMOL/L (135-145); TOTAL CARBON DIOXIDE 29.2 MMOL/L (24-32); TRIGLYCERIDES 211 MG/DL (20-135); eGFR 52 ML/MIN
[2024-05-22] VITALS (8 sets, daily range): BP systolic 89–114; BP diastolic 37–58; PULSE 76–88; RESP 16; TEMP 98.5; O2SAT 93–94
[~2024-05-22] VITALS: Ht 162.6 cm; Wt 167.6 kg
[2024-05-22] MEDS: LORazepam 0.5 MG tablet PO PRN (11:58)
[2024-05-22] MEDS: diphenhydrAMINE 25mg capsule PO PRN (11:58)
[2024-05-22] MEDS ORDERED: LIDOcaine 1% (10mg/ml) 2ml vial ONE (11:59)
[2024-05-22] MEDS ORDERED: verapamil 2.5 mg/ml inj IV ONE (11:59)
[2024-05-22] MEDS: normal saline 1,000 ML IV SCH (11:59)
[2024-05-22] MEDS ORDERED: fentaNYL/PF 50MCG/1 ML 2ML syringe ONE (12:00)
[2024-05-22] MEDS ORDERED: iohexol 350MG/ML 100ml bottle IV ONE (12:00)
[2024-05-22] MEDS ORDERED: heparin 1,000unit/ml 10ml vial 10 ML ONE (12:00)
[2024-05-22] MEDS ORDERED: midazolam 1 mg/ML 2ml injection ONE (12:00)
[2024-05-22] MEDS ORDERED: nitroGLYCERIN 500mcg/5mL D5W 5 ML IV ONE (12:01)
[2024-05-22] MEDS ORDERED: iohexol 350 MG/ML 50ML vial IV ONE (13:18)
[2024-05-22 13:19] LABS: ISTAT HGB ART 13.3 g/dl (12.0-16.0); ISTAT Hct ART 39 %PCV (35-45); ISTAT O2 SATURATION ARTERIAL 96 % (95-98); ISTAT SOURCE ART
[2024-05-22] MEDS: HYDROcodone/acetaminophen 10/325mg tab PO ONE (14:17)
[2024-05-22] MEDS ORDERED: HYDROcodone/acetaminophen 10/325mg tab PO PRN (14:35)
[2024-05-22] MEDS ORDERED: HYDROcodone/acetaminophen 5mg/325mg tablet PO PRN (14:35)
[2024-05-23 06:31] LABS: ISTAT HGB MIX 13.6 g/dl (12.0-16.0); ISTAT Hct MIX 40 %PCV (35-45); ISTAT O2 SATURATION MIX VENOUS 57 % (60-80); ISTAT SOURCE VEN
== END 2024-05-22 15:45 | disposition home or self-care (01) ==
LOC: SSTAY O 11:02
PROVIDERS: ATTEND Student in an Organized Health Care Education/Training Program
DX: I35.0 Nonrheumatic aortic (valve) stenosis (principal); I25.10 Atherosclerotic heart disease of native coronary artery without angina pectoris; I44.7 Left bundle-branch block, unspecified; I11.0 Hypertensive heart disease with heart failure; I50.9 Heart failure, unspecified; E78.00 Pure hypercholesterolemia, unspecified; E11.9 Type 2 diabetes mellitus without complications; E03.9 Hypothyroidism, unspecified; E66.01 Morbid (severe) obesity due to excess calories; G47.33 Obstructive sleep apnea (adult) (pediatric); Z79.891 Long term (current) use of opiate analgesic; Z79.84 Long term (current) use of oral hypoglycemic drugs; Z79.890 Hormone replacement therapy; Z79.899 Other long term (current) drug therapy; Z68.44 Body mass index [BMI] 60.0-69.9, adult; Z88.0 Allergy status to penicillin; Z88.8 Allergy status to other drugs, medicaments and biological substances
CPT/HCPCS: 36415; 80048; 80061; 82803; 85014; 85025; 85610; 85730; 93005; 93456; 99152; A6258; J1644; J2250; J3010; J3490; J7030; Q0163; Q9967; 99153; A6402; C1751; C1894

== ENCOUNTER 2024-07-17 07:58 | Outpatient (CLI) | payer BC, MEDICAID ==
[~2024-07-17 07:58] MED LIST changes: -ALBU2.5V7 NEB; -BECL10.6 PO; -CYCL-1 PO; +IODIXANOL 320 MG/ML INFUS..BTL 100ML IV ONE; -NYSPWD TP; -PIOG30TA71 PO; -TRAM50TA2 PO; -[UNRECOGNIZED DRUG - CODE] PO
[2024-07-17 08:21] LABS: BASOPHILS # (AUTO) 0.1 X10'3 (0-0.2); BASOPHILS % (AUTO) 0.9 % (0-1); EOSINOPHILS # (AUTO) 0.5 X10'3 (0-0.9); EOSINOPHILS % (AUTO) 4.6 % (0-6); HEMATOCRIT 41.7 % (35.0-45.0); HEMOGLOBIN 13.6 g/dl (12.0-16.0); LYMPHOCYTES # (AUTO) 4.6 X10'3 (1.1-4.8); LYMPHOCYTES % (AUTO) 44.4 % (21-51); MEAN CORPUSCULAR HGB CONC 32.7 g/dL (33.0-36.5); MEAN CORPUSCULAR VOLUME 88.6 FL (78-98); MEAN PLATELET VOLUME 7.5 FL (7.4-10.4); MONOCYTES # (AUTO) 0.5 X10'3 (0-0.9); MONOCYTES % (AUTO) 5.2 % (2-12); NEUTROPHILS # (AUTO) 4.6 X10'3 (1.8-7.7); NEUTROPHILS % (AUTO) 44.9 % (42-75); PLATELET COUNT 366 X10'3 (140-440); RED CELL DISTRIBUTION WIDTH 14.8 % (11.5-14.5); WHITE BLOOD COUNT 10.3 X10'3 (4.5-11.0)
[2024-07-17 08:37] LABS: APTT 30 SECONDS (22-32); PROTHROMBIN TIME 10.6 SECONDS (9.0-12.0)
[2024-07-17 08:39] LABS: ALANINE AMINOTRANSFERASE 25 U/L (12-78); ALBUMIN 2.8 G/DL (3.4-5.0); ALBUMIN/GLOBULIN RATIO 0.7 (1.1-1.5); ALKALINE PHOSPHATASE 124 IU/L (46-116); ANION GAP 8 (8-16); ASPARTATE AMINO TRANSFERASE 14 U/L (10-37); BILIRUBIN,TOTAL 0.4 MG/DL (0.1-1.0); BLOOD UREA NITROGEN 18 MG/DL (7-18); CALCIUM 8.6 MG/DL (8.5-10.1); CHLORIDE 106 MMOL/L (99-107); CREATININE 1.06 MG/DL (0.40-0.90); GLUCOSE 154 MG/DL (70-104); POTASSIUM 3.4 MMOL/L (3.5-5.1); SODIUM 140 MMOL/L (135-145); TOTAL CARBON DIOXIDE 25.9 MMOL/L (24-32); eGFR 52 ML/MIN
== END 2024-07-17 23:59 | disposition home or self-care (01) ==
LOC: RAD 07:58
PROVIDERS: ATTEND Internal Medicine Cardiovascular Disease
DX: I51.7 Cardiomegaly (principal); R06.02 Shortness of breath; I35.0 Nonrheumatic aortic (valve) stenosis; I65.29 Occlusion and stenosis of unspecified carotid artery
CPT/HCPCS: 36415; 71046; 80053; 85025; 85610; 85730; A4615; Q9967

== ENCOUNTER 2024-12-06 00:02 | Emergency (ER) | payer BC, MEDICAID ==
[~2024-12-06] VITALS: Ht 162.6 cm; Wt 138.0 kg
[~2024-12-06 00:02] MED LIST changes: +ATOR-429 PO; -ATOR80TA PO; +GABA-1405 PO; -GABA600T13 PO; -IODIXANOL 320 MG/ML INFUS..BTL 100ML IV ONE
[2024-12-06 00:40] LABS: BASOPHILS % (AUTO) 0.2 % (0-1); EOSINOPHILS # (AUTO) 0.3 X10'3 (0-0.9); EOSINOPHILS % (AUTO) 2.1 % (0-6); HEMATOCRIT 41.2 % (35.0-45.0); HEMOGLOBIN 13.8 g/dl (12.0-16.0); LYMPHOCYTES # (AUTO) 3.4 X10'3 (1.1-4.8); LYMPHOCYTES % (AUTO) 24.2 % (21-51); MEAN CORPUSCULAR HGB CONC 33.4 g/dL (33.0-36.5); MEAN CORPUSCULAR VOLUME 89.7 FL (78-98); MEAN PLATELET VOLUME 7.8 FL (7.4-10.4); MONOCYTES # (AUTO) 0.9 X10'3 (0-0.9); MONOCYTES % (AUTO) 6.1 % (2-12); NEUTROPHILS # (AUTO) 9.4 X10'3 (1.8-7.7); NEUTROPHILS % (AUTO) 67.4 % (42-75); PLATELET COUNT 390 X10'3 (140-440); RED CELL DISTRIBUTION WIDTH 14.2 % (11.5-14.5)
[2024-12-06 00:49] LABS: ALANINE AMINOTRANSFERASE 29 U/L (12-78); ALBUMIN 2.9 G/DL (3.4-5.0); ALBUMIN/GLOBULIN RATIO 0.7 (1.1-1.5); ALKALINE PHOSPHATASE 148 IU/L (46-116); ANION GAP 6 (8-16); ASPARTATE AMINO TRANSFERASE 17 U/L (10-37); BILIRUBIN,TOTAL 0.2 MG/DL (0.1-1.0); BLOOD UREA NITROGEN 15 MG/DL (7-18); BUN/CREATININE RATIO 14.7 (10.0-20.0); CALCIUM 8.5 MG/DL (8.5-10.1); CHLORIDE 106 MMOL/L (99-107); CREATININE 1.02 MG/DL (0.40-0.90); GLUCOSE 138 MG/DL (70-104); SODIUM 140 MMOL/L (135-145); TOTAL CARBON DIOXIDE 27.8 MMOL/L (24-32); TOTAL PROTEIN 7.2 G/DL (6.4-8.2); eCRCL 47 ML/MIN; eGFR 54 ML/MIN
[2024-12-06 00:57] LABS: D-DIMER 1.09 MG/L FEU (0-0.50); POTASSIUM 3.8 MMOL/L (3.5-5.1); PRO BRAIN NATRIURETIC PEPTIDE 747 PG/ML (0-125)
[2024-12-06] MEDS ORDERED: iohexol 350MG/ML 100ml bottle IV ONE (01:36)
[2024-12-06] MEDS: diphenhydrAMINE 50 mg/ml inj IV ONE (02:00)
[2024-12-06] MEDS: LORazepam 2 mg/ml vial IV ONE (02:08)
[2024-12-06] MEDS: normal saline 1000ML IV soln IVB ONE (02:49)
[2024-12-06 03:46] VITALS: TEMP 96.8
[2024-12-06] MEDS: normal saline 1000ml 1,000 ML IV ONE (04:59)
[2024-12-06 05:18] LABS: BILIRUBIN,URINE NEGATIVE (Neg); CLARITY,URINE CLOUDY (Clear); COLOR,URINE YELLOW (Yellow); GLUCOSE, URINE NEGATIVE (Neg); KETONES,URINE NEGATIVE (Neg); LEUKOCYTE ESTERASE ,URINE NEGATIVE (Neg); NITRITES, URINE POSITIVE (Neg); OCCULT BLOOD,URINE NEGATIVE (Neg); PH,URINE 5.5 (4.8-8.0); PROTEIN,URINE NEGATIVE (Neg); UROBILINOGEN,URINE 0.2 E.U/dL (0.2-1.0)
[2024-12-06 05:20] LABS: UA COLLECTION TYPE CLN CATCH MIDSTREAM
[2024-12-06 05:24] LABS: BACTERIA,URINE 3+ /HPF (Neg); RBC,URINE NONE SEEN /HPF (0-2); SQUAMOUS EPITHELIAL CELL,UR MODERATE /LPF (FEW)
[2024-12-06] MEDS ORDERED: CEPH-585 PO (05:48)
[2024-12-06] MEDS: CefTRIAXone/D5W-Rocephin 1gm 50 ML IV ONE (05:48)
[2024-12-06 06:46] VITALS: BP 112/65; PULSE 93; RESP 16; O2SAT 98
== END 2024-12-06 06:48 | disposition home or self-care (01) ==
LOC: ER 00:04
DX: R07.89 Other chest pain (principal); J45.909 Unspecified asthma, uncomplicated; I10 Essential (primary) hypertension; E11.9 Type 2 diabetes mellitus without complications; G47.30 Sleep apnea, unspecified; E03.9 Hypothyroidism, unspecified; Z88.0 Allergy status to penicillin; Z88.8 Allergy status to other drugs, medicaments and biological substances; Z98.890 Other specified postprocedural states
CPT/HCPCS: 36415; 71045; 71275; 80053; 81001; 83880; 84145; 84484; 85025; 85379; 87088; 87186; 93005; 96361; 96365; 96375; 99285; J0696; J2060; J7030; Q9967; 87077

== ENCOUNTER 2025-01-23 10:26 | Outpatient (CLI) | payer BC, MEDICAID ==
[~2025-01-23 10:26] MED LIST changes: -METF-900 PO
[2025-01-23 10:59] LABS: BASOPHILS # (AUTO) 0.2 X10'3 (0-0.2); BASOPHILS % (AUTO) 1.4 % (0-1); EOSINOPHILS # (AUTO) 0.3 X10'3 (0-0.9); EOSINOPHILS % (AUTO) 2.4 % (0-6); HEMATOCRIT 43.7 % (35.0-45.0); HEMOGLOBIN 14.3 g/dl (12.0-16.0); LYMPHOCYTES # (AUTO) 4.2 X10'3 (1.1-4.8); LYMPHOCYTES % (AUTO) 30.1 % (21-51); MEAN CORPUSCULAR HEMOGLOBIN 29.2 PG (27.0-31.0); MEAN CORPUSCULAR HGB CONC 32.8 g/dL (33.0-36.5); MEAN PLATELET VOLUME 7.5 FL (7.4-10.4); MONOCYTES # (AUTO) 0.9 X10'3 (0-0.9); MONOCYTES % (AUTO) 6.4 % (2-12); NEUTROPHILS # (AUTO) 8.3 X10'3 (1.8-7.7); NEUTROPHILS % (AUTO) 59.7 % (42-75); PLATELET COUNT 464 X10'3 (140-440); RED BLOOD COUNT 4.91 X10'6 (4.20-5.60); RED CELL DISTRIBUTION WIDTH 14.5 % (11.5-14.5); WHITE BLOOD COUNT 13.9 X10'3 (4.5-11.0)
[2025-01-23 11:13] LABS: INR 1.1 INR
[2025-01-23 11:26] LABS: APTT 30 SECONDS (22-32); PROTHROMBIN TIME 10.8 SECONDS (9.0-12.0)
[2025-01-23 11:38] LABS: ALANINE AMINOTRANSFERASE 22 U/L (12-78); ALBUMIN/GLOBULIN RATIO 0.7 (1.1-1.5); ALKALINE PHOSPHATASE 136 IU/L (46-116); ANION GAP 7 (8-16); ASPARTATE AMINO TRANSFERASE 18 U/L (10-37); BILIRUBIN,TOTAL 0.3 MG/DL (0.1-1.0); BLOOD UREA NITROGEN 22 MG/DL (7-18); BUN/CREATININE RATIO 21.8 (10.0-20.0); CHLORIDE 104 MMOL/L (99-107); CREATININE 1.01 MG/DL (0.40-0.90); GLUCOSE 136 MG/DL (70-104); POTASSIUM 4.1 MMOL/L (3.5-5.1); SODIUM 138 MMOL/L (135-145); TOTAL CARBON DIOXIDE 26.9 MMOL/L (24-32); TOTAL PROTEIN 7.5 G/DL (6.4-8.2); eGFR 55 ML/MIN
[2025-01-23 11:42] LABS: PRO BRAIN NATRIURETIC PEPTIDE 1245 PG/ML (0-125)
[2025-01-28] MEDS ORDERED: PER5325T PO (13:43)
== END 2025-01-23 23:59 | disposition home or self-care (01) ==
LOC: RAD 10:26
PROVIDERS: ATTEND Internal Medicine Cardiovascular Disease
DX: I25.10 Atherosclerotic heart disease of native coronary artery without angina pectoris (principal); N20.0 Calculus of kidney; I35.0 Nonrheumatic aortic (valve) stenosis; R06.02 Shortness of breath; I65.29 Occlusion and stenosis of unspecified carotid artery
CPT/HCPCS: 36415; 71046; 71275; 74174; 75572; 80053; 83880; 85025; 85610; 85730; Q9967

== ENCOUNTER 2025-01-24 13:48 | Outpatient (CLI) | payer BC, MEDICAID ==
[~2025-01-24 13:48] MED LIST changes: +IODIXANOL 320 MG/ML INFUS..BTL 100ML IV ONE
--- NOTE | 2025-01-24 14:42 | CONSULTATION REPORT ---
History of Present Illness Providers to CC ~ Reason for Admit\Admit Dx: Critical aortic stenosis Refering MD: UNKNOWN History of Present Illness Mrs. Draper is a very nice 64-year-old woman who has a known history of aortic stenotic murmur. She has been followed with serial echocardiography. Her most recent shows a valve area of 0.9 cm squared. She has been undergoing workup for possible TAVR. She has nonobstructive coronary artery disease. Risk factors include morbid obesity and degenerative disc disease. Given her age she was felt to be a better candidate for SAVR. She denies PND or orthopnea although she does have exertional dyspnea. She denies anginal or pleuritic chest pain. Allergies: Coded Allergies: Penicillins (Verified Allergy, Unknown, 12/06/24) sertraline (Verified Allergy, Unknown, 12/06/24) Home Medications Home Medications Active Reported Sumatriptan Succinate 100 Mg Tablet 1 Tab PO DAILY PRN Albuterol 17 Gm Aerosol 2 Puff PO QID PRN Furosemide 20 Mg Tablet 2 Tab PO DAILY Hydroxyzine HCl 50 Mg Tablet 1 Tab PO DAILY PRN Levothyroxine Sodium 75 Mcg Tablet 1 Tab PO DAILY Paroxetine HCl 40 Mg Tablet 1 Tab PO DAILY 30 Days Gabapentin 600 Mg Tablet 1 Tab PO BID 30 Days Cyclobenzaprine HCl 10 Mg Tablet 1 Tab PO TID PRN Lipitor* (Atorvastatin Calcium) 80 Mg Tablet 1 Tablet PO HS Past Medical History Medical History Comment Significant for morbid obesity, type 2 diabetes on diet control, hypertension, c ritical aortic stenosis, Past Family History Family History: Patient reports no known family medical history. Physical Exam Last Vital Signs Recorded: RN Vital Signs have been reviewed: Yes General Appearance: alert, WD/WN, no apparent distress EENT: moist mucous membranes, other (Dentition in fair repair. No obvious caries) Neck: non-tender, carotid bruit Respiratory: lungs clear, normal breath sounds, no respiratory distress Cardiovascular: regular rate, rhythm, systolic murmur (Grade 3/6 systolic flow murmur. S2 is single. No S3 or S4. No rubs) Peripheral Pulses: 2+ carotid (R), 2+ carotid (L), 2+ radial (R), 2+ radial (L) Gastrointestinal: other (Morbidly obese. Normoactive bowel sounds. Nontender. No comment can be made about organomegaly or masses) Rectal: deferred Back: no CVA tenderness Extremities: edema (Bilateral calf edema. Some evidence of chronic venous insufficiency) Neurologic: oriented x4 Psychiatric: normal mood/affect Skin: normal color, warm/dry Review of Systems ROS ROS Comments: Generally she denies anorexia or malaise, jaundice, pruritus, fever, chills or weight loss. GI she has had no problems with nausea or vomiting, diarrhea, constipation, melena or bright red blood per rectum. she denies dysuria, pyuria, hematuria, urgency, hesitancy or frequency. Neuromuscular she denies frequent or severe headaches. She notes no changes in her visual schafer. She has had no difficulty with speech, swallowing, ambulation or coordination. Cardiopulmonary is as noted in history of present illness. Assessment/Plan Additional Plan Mrs. Alejandre is a very nice 64-year-old woman who has critical aortic stenosis. This is becoming increasingly symptomatic and with a valve area of less than 1 centimeter squared. Given her age we have recommended that she undergo surgical aortic valve replacement with a bioprosthesis. The indications alternatives to surgery as well as the risks, benefits and possible complications associated with aortic valve replacement in the setting have been discussed at some length with the patient. She states she understands and accepts these and requested that we proceed. All of her questions have been answered to her stated satisfaction. Plan surgery for Tuesday of next week. This will be done via limited upper sternotomy if feasible given her body habitus DACIA MORILLO III, MD Jan 24, 2025 14:42
[2025-01-28] MEDS ORDERED: PER5325T PO (13:43)
[2025-02-03] MEDS ORDERED: ASPI81TA53 PO (09:47)
[2025-02-03] MEDS ORDERED: NYSPWD TP (09:47)
[2025-02-03] MEDS ORDERED: LOP12.5T PO (09:47)
[2025-02-03] MEDS ORDERED: HYDR-3972 PO (09:47)
== END 2025-01-24 23:59 | disposition home or self-care (01) ==
LOC: TAVR 13:48
PROVIDERS: ATTEND Internal Medicine Cardiovascular Disease
DX: I35.0 Nonrheumatic aortic (valve) stenosis (principal); R06.02 Shortness of breath; I65.29 Occlusion and stenosis of unspecified carotid artery
CPT/HCPCS: Q9967